=== PATIENT | male | born 1970 | race Two or more races ===

== ENCOUNTER 2023-03-10 02:18 | Inpatient (IN) | payer MEDICAID, OTHER ==
[~2023-03-10] VITALS: Ht 177.8 cm; Wt 77.0 kg
[2023-03-10] VITALS (68 sets, daily range): BP systolic 85–138; BP diastolic 49–86
[2023-03-10] MEDS ORDERED: ATORVASTATIN 20 MG TAB PO ONE (02:30)
[2023-03-10] MEDS ORDERED: TICAGRELOR 90 MG TAB PO ONE (02:30)
[2023-03-10] MEDS ORDERED: HEPARIN SODIUM (PORCINE) 5000 UNITS/ML 1ML VIAL IV ONE (02:30)
[2023-03-10] MEDS ORDERED: MORPHINE SULFATE 4 MG/ML SYR/VIAL IV ONE (02:45)
[2023-03-10 02:52] LABS: Basophils # (auto) 0.1 10 ^3/uL (0-0.2); Basophils % (auto) 0.8 % (0.0-2.0); Eosinophils # (auto) 0.1 10 ^3/uL (0-0.8); Eosinophils % (auto) 0.4 % (0.0-7.0); Hematocrit 46.2 % (41.0-53.0); Hemoglobin 15.6 g/dL (13.5-17.5); Lymphocytes # (auto) 1.2 10 ^3/uL (0.4-5.4); Mean Corpuscular Hemoglobin 29.7 pg (28.0-32.0); Mean Corpuscular Hgb Conc. 33.7 g/dL (32.0-36.0); Monocytes # (auto) 0.4 10 ^3/uL (0-1.3); Monocytes % (auto) 2.5 % (0.0-12.0); Neutrophils # (auto) 13.5 10 ^3/uL (1.6-8.6); Neutrophils % (auto) 88.3 % (37.0-80.0); Nucleated Red Blood Cells % 0.2 %; Red Blood Cells 5.25 10^6/uL (4.5-5.90); Red Cell Distribution Width 12.8 % (11.8-14.3); White Blood Cell 15.3 10^3/uL (4.4-10.8)
[2023-03-10] MEDS ORDERED: ANGIOMAX 250 MG VIAL IV ONE (02:53)
[2023-03-10] MEDS ORDERED: fentaNYL CITRATE 100 MCG/2 ML VL ONE (02:53)
[2023-03-10] MEDS ORDERED: SODIUM CHL 0.9% 50 ML ONE (02:53)
[2023-03-10] MEDS ORDERED: MIDAZOLAM HCL 2MG/2ML 2ml VIAL (1mg/ml) ONE (02:53)
[2023-03-10] MEDS ORDERED: HEPARIN IN NS 1000Units/500mL 1,500 ML ONE (02:57)
[2023-03-10] MEDS ORDERED: VERAPAMIL 2.5MG/ML INJ 2ML VIAL IV ONE (02:57)
[2023-03-10] MEDS ORDERED: IODIXANOL 320MG/ML 100ML BTL IV ONE ×2 (02:58→04:00)
[2023-03-10] MEDS ORDERED: LIDOCAINE 2%HCL (LOCAL ANESTH.) INJ 20ML MDV ONE (02:58)
[2023-03-10] MEDS ORDERED: HEPARIN SODIUM (PORCINE) 5000 UNITS/ML 1ML VIAL ONE ×2 (03:00→03:22)
[2023-03-10 03:06] LABS: INR 1.43 (0.9-1.15); Partial Thromboplastin Time 39.5 SEC (24.5-34.5)
[2023-03-10 03:10] LABS: Albumin 3.8 g/dL (3.4-5.0); BUN/Creatinine Ratio 13.3 (10.0-20.0); Calcium 8.9 mg/dL (8.5-10.1); Magnesium 1.8 mg/dL (1.6-2.6); Potassium 3.5 mmol/L (3.5-5.1)
[2023-03-10 03:13] LABS: Bilirubin, Total 0.4 mg/dL (0.2-1.0); Total Protein 7.8 g/dL (6.4-8.2)
[2023-03-10] MEDS ORDERED: EPINEPHrine HCL 1 MG/10 ML SYRG ONE (03:15)
[2023-03-10] MEDS ORDERED: ATROPINE SULF 1 MG/10ml SYR ONE (03:15)
[2023-03-10 03:21] LABS: Urine Bacteria FEW /hpf (None Seen); Urine Blood TRACE /uL (Negative); Urine Mucus FEW (None Seen); Urine Specific Gravity 1.031 (1.001-1.035); Urine WBC 2 /hpf (0 - 3)
[2023-03-10] MEDS ORDERED: EPTIFIBATIDE INJ (2MG/ML) 10ML VIAL IV ONE (03:27)
[2023-03-10] MEDS ORDERED: PHENYLEPHRINE IV 250 ML IV ONE (03:28)
[2023-03-10] MEDS ORDERED: ASPirin-EC 81 mg tab PO ONE (04:45)
[2023-03-10] MEDS ORDERED: MORPHINE SULFATE INJ 2 MG/ml SYRG IV PRN ×2 (04:45→05:00)
[2023-03-10] MEDS ORDERED: NITROGLYCERIN 0.4 MG SL TAB SL PRN ×3 (04:45→05:00)
[2023-03-10] MEDS ORDERED: ACETAMINOPHEN 500 MG TAB PO PRN (04:45)
[2023-03-10] MEDS ORDERED: LORazepam 0.5 MG TAB PO PRN (04:45)
[2023-03-10] MEDS ORDERED: ONDANSETRON HCL 4 MG/2 ML VIAL IV PRN (04:45)
[2023-03-10] MEDS ORDERED: SODIUM CHLORIDE 0.9% 1,000 ML IV ONE ×2 (04:45→08:00)
[2023-03-10] MEDS ORDERED: ZOLPIDEM TARTRATE 5 MG TAB PO PRN (04:45)
[2023-03-10] MEDS: SODIUM CHLOR 0.9% PF (SALINE LOCK) 10ML VIAL/SYR IV SCH ×3 (05:43→22:29)
[2023-03-10] MEDS ORDERED: NOREPINEPHRINE 8 MG/250ML KIT 250 ML IV ONE (07:54)
[2023-03-10] MEDS: NOREPINEPHRINE 8 MG/250ML KIT 250 ML IV SCH (08:01)
[2023-03-10] MEDS: MAGNESIUM SULFATE 1GM/100ML 100 ML IV SCH ×2 (09:12→09:59)
[2023-03-10] MEDS: POTASSIUM CHL 20MEQ/100ML 100 ML IV SCH ×2 (09:13→11:06)
[2023-03-10] MEDS ORDERED: SOD CHL 0.9%/ KCL 40MEQ 1,000 ML IV ONE (09:15)
[2023-03-10] MEDS: TICAGRELOR 90 MG TAB PO SCH ×2 (09:57→22:29)
[2023-03-10] MEDS ORDERED: ASPirin-EC 81 mg tab PO SCH (10:00)
[2023-03-10] MEDS: DOPamine 1600MCG/ML D5W 250 ML IV SCH (11:23)
[2023-03-10 11:52] LABS: Basophils # (auto) 0.1 10 ^3/uL (0-0.2); Basophils % (auto) 0.4 % (0.0-2.0); Eosinophils # (auto) 0.2 10 ^3/uL (0-0.8); Hematocrit 42.8 % (41.0-53.0); Hemoglobin 14.2 g/dL (13.5-17.5); Lymphocytes # (auto) 2.5 10 ^3/uL (0.4-5.4); Lymphocytes % (auto) 16.6 % (10.0-50.0); Mean Corpuscular Hemoglobin 30.3 pg (28.0-32.0); Mean Corpuscular Hgb Conc. 33.2 g/dL (32.0-36.0); Mean Corpuscular Volume 91.2 fL (80.0-100.0); Monocytes # (auto) 1.3 10 ^3/uL (0-1.3); Monocytes % (auto) 8.6 % (0.0-12.0); Neutrophils # (auto) 11.2 10 ^3/uL (1.6-8.6); Neutrophils % (auto) 73.4 % (37.0-80.0); Red Blood Cells 4.69 10^6/uL (4.5-5.90); Red Cell Distribution Width 13.1 % (11.8-14.3); White Blood Cell 15.2 10^3/uL (4.4-10.8)
[2023-03-10 12:01] LABS: Calcium 7.8 mg/dL (8.5-10.1)
[2023-03-10 12:11] LABS: BUN/Creatinine Ratio 11.1 (10.0-20.0); Bilirubin, Total 0.4 mg/dL (0.2-1.0); Total Protein 6.2 g/dL (6.4-8.2)
[2023-03-10] MEDS ORDERED: ATROPINE SULF 1 MG/10ml SYR IV ONE (15:08)
[2023-03-10] MEDS: SODIUM CHLORIDE 0.9% 1,000 ML IV SCH (19:47)
[2023-03-11] VITALS (93 sets, daily range): BP systolic 97–147; BP diastolic 64–95
[2023-03-11] MEDS: DOPamine 1600MCG/ML D5W 250 ML IV SCH ×2 (01:37→19:00)
[2023-03-11] MEDS: SODIUM CHLORIDE 0.9% 1,000 ML IV SCH (03:26)
[2023-03-11 04:17] LABS: Basophils # (auto) 0 10 ^3/uL (0-0.2); Basophils % (auto) 0.2 % (0.0-2.0); Eosinophils # (auto) 0.2 10 ^3/uL (0-0.8); Eosinophils % (auto) 1.3 % (0.0-7.0); Hematocrit 42.4 % (41.0-53.0); Hemoglobin 14.4 g/dL (13.5-17.5); Lymphocytes # (auto) 2.2 10 ^3/uL (0.4-5.4); Mean Corpuscular Hemoglobin 30.5 pg (28.0-32.0); Mean Corpuscular Hgb Conc. 34.1 g/dL (32.0-36.0); Mean Corpuscular Volume 89.7 fL (80.0-100.0); Monocytes # (auto) 1.4 10 ^3/uL (0-1.3); Monocytes % (auto) 10.3 % (0.0-12.0); Neutrophils % (auto) 72.2 % (37.0-80.0); Nucleated Red Blood Cells % 0.1 %; Red Blood Cells 4.73 10^6/uL (4.5-5.90); Red Cell Distribution Width 12.8 % (11.8-14.3); White Blood Cell 13.8 10^3/uL (4.4-10.8)
[2023-03-11 04:38] LABS: Potassium 3.7 mmol/L (3.5-5.1)
[2023-03-11 04:47] LABS: Albumin 3.1 g/dL (3.4-5.0); BUN/Creatinine Ratio 11.5 (10.0-20.0); Bilirubin, Total 0.9 mg/dL (0.2-1.0); Calcium 8.3 mg/dL (8.5-10.1); Magnesium 2.1 mg/dL (1.6-2.6); Total Protein 6.8 g/dL (6.4-8.2)
[2023-03-11] MEDS: SODIUM CHLOR 0.9% PF (SALINE LOCK) 10ML VIAL/SYR IV SCH ×3 (06:37→22:22)
[2023-03-11] MEDS: MAGNESIUM SULFATE 1GM/100ML 100 ML IV SCH ×2 (07:36→08:42)
[2023-03-11] MEDS: POTASSIUM CHL 20MEQ/100ML 100 ML IV SCH ×2 (07:36→09:47)
[2023-03-11] MEDS: TICAGRELOR 90 MG TAB PO SCH ×2 (09:51→22:20)
[2023-03-11] MEDS ORDERED: RANOLAZINE ER 500 MG TAB PO ONE (10:45)
[2023-03-11] MEDS ORDERED: ASPirin 81 mg TAB PO ONE (13:00)
[2023-03-11] MEDS: NOREPINEPHRINE 8 MG/250ML KIT 250 ML IV SCH (19:00)
[2023-03-11] MEDS: RANOLAZINE ER 500 MG TAB PO SCH (22:19)
[2023-03-11] MEDS: ATORVASTATIN 20 MG TAB PO SCH (22:20)
[2023-03-12] VITALS (53 sets, daily range): BP systolic 101–142; BP diastolic 17–93
[2023-03-12 03:52] LABS: Basophils # (auto) 0.1 10 ^3/uL (0-0.2); Basophils % (auto) 0.5 % (0.0-2.0); Eosinophils # (auto) 0.3 10 ^3/uL (0-0.8); Eosinophils % (auto) 2.4 % (0.0-7.0); Hematocrit 44.1 % (41.0-53.0); Hemoglobin 14.9 g/dL (13.5-17.5); Lymphocytes # (auto) 2.5 10 ^3/uL (0.4-5.4); Lymphocytes % (auto) 21.2 % (10.0-50.0); Mean Corpuscular Hemoglobin 30.1 pg (28.0-32.0); Mean Corpuscular Hgb Conc. 33.8 g/dL (32.0-36.0); Mean Corpuscular Volume 89.1 fL (80.0-100.0); Monocytes # (auto) 1.2 10 ^3/uL (0-1.3); Monocytes % (auto) 10.2 % (0.0-12.0); Neutrophils # (auto) 7.9 10 ^3/uL (1.6-8.6); Neutrophils % (auto) 65.7 % (37.0-80.0); Red Blood Cells 4.95 10^6/uL (4.5-5.90); Red Cell Distribution Width 12.6 % (11.8-14.3)
[2023-03-12 04:11] LABS: Calcium 8.6 mg/dL (8.5-10.1); Potassium 3.8 mmol/L (3.5-5.1)
[2023-03-12 04:13] LABS: BUN/Creatinine Ratio 13.8 (10.0-20.0)
[2023-03-12] MEDS: SODIUM CHLOR 0.9% PF (SALINE LOCK) 10ML VIAL/SYR IV SCH ×3 (06:20→22:26)
[2023-03-12] MEDS: NOREPINEPHRINE 8 MG/250ML KIT 250 ML IV SCH (08:00)
[2023-03-12] MEDS: RANOLAZINE ER 500 MG TAB PO SCH ×2 (10:28→22:24)
[2023-03-12] MEDS: TICAGRELOR 90 MG TAB PO SCH ×2 (10:28→22:24)
[2023-03-12] MEDS: ASPirin 81 mg TAB PO SCH (10:28)
[2023-03-12] MEDS: DOPamine 1600MCG/ML D5W 250 ML IV SCH (11:15)
[2023-03-12] MEDS: ATORVASTATIN 20 MG TAB PO SCH (22:25)
[2023-03-13 05:00] VITALS: BP 130/80
[2023-03-13] MEDS: DOPamine 1600MCG/ML D5W 250 ML IV SCH (07:36)
[2023-03-13 09:00] VITALS: BP 116/72
[2023-03-13 09:01] LABS: Basophils # (auto) 0.1 10 ^3/uL (0-0.2); Basophils % (auto) 0.5 % (0.0-2.0); Eosinophils # (auto) 0.2 10 ^3/uL (0-0.8); Eosinophils % (auto) 2.1 % (0.0-7.0); Hematocrit 48.1 % (41.0-53.0); Hemoglobin 16.4 g/dL (13.5-17.5); Lymphocytes # (auto) 2.5 10 ^3/uL (0.4-5.4); Lymphocytes % (auto) 21.8 % (10.0-50.0); Mean Corpuscular Hemoglobin 30.4 pg (28.0-32.0); Mean Corpuscular Hgb Conc. 34.1 g/dL (32.0-36.0); Mean Corpuscular Volume 88.9 fL (80.0-100.0); Monocytes # (auto) 1.3 10 ^3/uL (0-1.3); Monocytes % (auto) 10.9 % (0.0-12.0); Neutrophils # (auto) 7.5 10 ^3/uL (1.6-8.6); Neutrophils % (auto) 64.7 % (37.0-80.0); Nucleated Red Blood Cells % 0.2 %; Red Blood Cells 5.41 10^6/uL (4.5-5.90); Red Cell Distribution Width 12.6 % (11.8-14.3); White Blood Cell 11.6 10^3/uL (4.4-10.8)
[2023-03-13 09:26] LABS: Calcium 9.2 mg/dL (8.5-10.1); Potassium 3.9 mmol/L (3.5-5.1)
[2023-03-13] MEDS ORDERED: SACUBITRIL-VALSARTAN 24mg/26mg TAB PO SCH (10:00)
[2023-03-13] MEDS: RANOLAZINE ER 500 MG TAB PO SCH (10:03)
[2023-03-13] MEDS: ASPirin 81 mg TAB PO SCH (10:03)
[2023-03-13] MEDS: TICAGRELOR 90 MG TAB PO SCH (10:03)
[2023-03-13] MEDS ORDERED: RANO500T3 PO (10:14)
[2023-03-13] MEDS ORDERED: TICA90TA PO (10:14)
[2023-03-13] MEDS ORDERED: ATOR20TA50 PO (10:14)
[2023-03-13] MEDS ORDERED: SACU1TAB PO (10:14)
[2023-03-13] MEDS ORDERED: ASPI-325 PO (10:14)
[2023-03-13 11:55] VITALS: BP 116/72
== END 2023-03-13 13:07 | disposition home or self-care (01) | DRG 174 ==
LOC: EDBD 02:18 → ER 02:18 → TELE-WESTW 03:14 → TELE 04:43 → ICU WEST 05:09 → TELE-WESTW 03-12 21:09
PROVIDERS: ADMIT Internal Medicine Adult Congenital Heart Disease; ATTEND Internal Medicine Pulmonary Disease
PROC: 4A023N7 Measurement of Cardiac Sampling and Pressure, Left Heart, Percutaneous Approach (ICD-10-PCS; principal; 2023-03-10)
PROC: 027034Z Dilation of Coronary Artery, One Artery with Drug-eluting Intraluminal Device, Percutaneous Approach (ICD-10-PCS; 2023-03-10)
PROC: 02C03ZZ Extirpation of Matter from Coronary Artery, One Artery, Percutaneous Approach (ICD-10-PCS; 2023-03-10)
PROC: B211YZZ Fluoroscopy of Multiple Coronary Arteries using Other Contrast (ICD-10-PCS; 2023-03-10)
DX: I21.19 ST elevation (STEMI) myocardial infarction involving other coronary artery of inferior wall (principal); R57.0 Cardiogenic shock; I50.21 Acute systolic (congestive) heart failure; I11.0 Hypertensive heart disease with heart failure; I95.9 Hypotension, unspecified; R65.10 Systemic inflammatory response syndrome (SIRS) of non-infectious origin without acute organ dysfunction; I25.10 Atherosclerotic heart disease of native coronary artery without angina pectoris; F17.210 Nicotine dependence, cigarettes, uncomplicated; E66.9 Obesity, unspecified; E78.5 Hyperlipidemia, unspecified; R73.9 Hyperglycemia, unspecified; Z68.24 Body mass index [BMI] 24.0-24.9, adult; Z71.6 Tobacco abuse counseling
CPT/HCPCS: 36415; 71045; 80048; 80053; 80061; 81001; 83036; 83605; 83735; 83880; 84484; 85025; 85610; 85730; 86850; 86900; 86901; 87081; 92941; 92973; 93005; 93306; 93458; 96361; 96374; 96375; 99152; 99153; C1887; G0378; J2250; J3480; Q9967

== ENCOUNTER 2023-04-17 18:38 | Emergency (ER) | payer MEDICAID ==
[~2023-04-17] VITALS: Ht 177.8 cm; Wt 75.0 kg
[~2023-04-17 18:38] MED LIST: ASPI-325 PO; ATOR20TA50 PO; RANO500T3 PO; SACU1TAB PO; TICA90TA PO
[2023-04-17 19:40] VITALS: PULSE 77; RESP 17; O2SAT 96
[2023-04-17 19:51] LABS: Basophils # (auto) 0.1 10 ^3/uL (0-0.2); Basophils % (auto) 0.6 % (0.0-2.0); Eosinophils # (auto) 0.2 10 ^3/uL (0-0.8); Eosinophils % (auto) 2.1 % (0.0-7.0); Hematocrit 40.5 % (41.0-53.0); Hemoglobin 13.6 g/dL (13.5-17.5); Lymphocytes % (auto) 18.1 % (10.0-50.0); Mean Corpuscular Hemoglobin 29.3 pg (28.0-32.0); Mean Corpuscular Hgb Conc. 33.6 g/dL (32.0-36.0); Monocytes # (auto) 0.7 10 ^3/uL (0-1.3); Monocytes % (auto) 6.5 % (0.0-12.0); Neutrophils # (auto) 8.2 10 ^3/uL (1.6-8.6); Neutrophils % (auto) 72.7 % (37.0-80.0); Nucleated Red Blood Cells % 0.2 %; Red Blood Cells 4.66 10^6/uL (4.5-5.90); Red Cell Distribution Width 12.7 % (11.8-14.3); White Blood Cell 11.3 10^3/uL (4.4-10.8)
[2023-04-17 20:08] LABS: Albumin 3.6 g/dL (3.4-5.0); Calcium 8.9 mg/dL (8.5-10.1); Potassium 4.4 mmol/L (3.5-5.1)
[2023-04-17 20:12] LABS: BUN/Creatinine Ratio 7.6 (10.0-20.0); Bilirubin, Total 0.2 mg/dL (0.2-1.0); Total Protein 6.8 g/dL (6.4-8.2)
[2023-04-17] MEDS ORDERED: SODIUM CHLORIDE 0.9% 2,250 ML IV ONE (21:30)
[2023-04-17] MEDS ORDERED: SODIUM CHLORIDE 0.9% 1,000 ML IV ONE (22:15)
[2023-04-17 22:22] LABS: Urine Bacteria NONE SEEN /hpf (None Seen); Urine Blood Negative /uL (Negative); Urine Clarity Clear (Clear); Urine Color Colorless (Yellow); Urine Protein, UAD Negative (Negative); Urine Specific Gravity 1.005 (1.001-1.035); Urine Urobilinogen Normal (Negative); Urine WBC 1 /hpf (0 - 3); Urine pH 6.5 (5.0-8.0)
[2023-04-17 23:09] VITALS: TEMP 97.4
[2023-04-17 23:46] VITALS: BP 115/77; PULSE 77; RESP 16; O2SAT 99
== END 2023-04-17 23:49 | disposition left against medical advice (07) ==
LOC: ER 18:38 → EDBD 18:38 → ER 23:46
DX: R61 Generalized hyperhidrosis (principal); I95.9 Hypotension, unspecified; F10.10 Alcohol abuse, uncomplicated; I25.10 Atherosclerotic heart disease of native coronary artery without angina pectoris; I10 Essential (primary) hypertension; E78.5 Hyperlipidemia, unspecified; F17.210 Nicotine dependence, cigarettes, uncomplicated; F12.90 Cannabis use, unspecified, uncomplicated; Z98.890 Other specified postprocedural states; Z79.899 Other long term (current) drug therapy; Z88.6 Allergy status to analgesic agent
CPT/HCPCS: 36415; 71045; 80053; 80320; 81001; 82962; 83880; 84484; 85025; 93005; 96360; 99285; J7030

== ENCOUNTER → 2024-07-02 | Outpatient (CLI) | payer MEDICAID ==
[~2024-07-02] MED LIST changes: +ALBUTEROL SULF 2.5 MG/0.5ML(0.5%) NEB SOLN ONE
== END | disposition home or self-care (01) ==
LOC: RT 14:28
PROVIDERS: ATTEND Internal Medicine Pulmonary Disease
DX: R06.00 Dyspnea, unspecified (principal); J44.9 Chronic obstructive pulmonary disease, unspecified
CPT/HCPCS: 94060; 94727; 94729